=== PATIENT | female | born 1990 | race Caucasian/White ===

== ENCOUNTER 2017-09-18 15:59 | Emergency (ER) | END 2017-09-18 17:46 | disposition home or self-care (01) ==

== ENCOUNTER 2018-08-09 21:14 | Emergency (ER) | payer SELFPAY ==
[~2018-08-09] VITALS: Wt 83.9 kg
[~2018-08-09 21:14] MED LIST: AZIT250T PO; POLY10DR19 BOTH EYES
[2018-08-09] MEDS ORDERED: morphine 4 MG/ML VIAL IV STA (21:30)
[2018-08-09] MEDS ORDERED: SOD CHLORIDE 0.9% 1,000 ML IV STA (21:30)
[2018-08-09] MEDS ORDERED: ONDANSETRON 4 MG INJ IV STA (21:30)
--- NOTE | 2018-08-09 21:40 | ERD ---
ER Documentation Chief Complaint Chief Complaint VAGINAL BLEED, 6 WEEKS PG X'S 2 DAYS HPI 27-year female in her sixth week of presents with bleeding and lower abdominal pain for the past 3 days. She states that she has had a miscarriage before and that she is having another miscarriage. Describes her abdominal pain of 9 out of 10 in intensity. In addition she states that she is passing clots. Denies syncope, heart palpitations, fevers, shortness of breath, lightheadedness. Allergic to penicillin. History of . ROS All systems reviewed and are negative except as per history of present illness. Medications Home Meds Active Scripts Ibuprofen* (Motrin*) 600 Mg Tab, 600 MG PO Q6 for pain, #30 TAB Prov:SOTERO GANDHI 08/10/18 Azithromycin* (Zithromax*) 250 Mg Tablet, 250 MG PO .ZPACK DIRECTED, #6 TAB TAKE 500 MG (2 TABS) THE FIRST DAY THEN 250 MG (1 TAB) DAYS 2-5 Prov:SOTERO FRANKLIN PA-C 09/18/17 Polymyxin B Sulfate-TMP* (Polymyxin B-TMP Eye Drops*) 10 Ml Drops, 1 DROP BOTH EYES QID for 7 Days, #1 BOTTLE Prov:SOTERO FRANKLIN PA-C 09/18/17 Allergies Allergies: Coded Allergies: Penicillins (Verified Allergy, Mild, 09/18/17) PMhx/Soc Hx Alcohol Use: No Hx Substance Use: No Hx Tobacco Use: No Smoking Status: Never smoker FmHx Family History: No diabetes, No coronary disease, No other Physical Exam Vitals Vital Signs Date Temp Pulse Resp B/P (MAP) Pulse Ox O2 O2 Flow FiO2 Time Delivery Rate 08/10/18 97.4 87 18 106/54 99 Room Air 01:22 (71) 08/09/18 63 20 98/52 (67) 100 Nasal 2.0 22:11 Cannula 08/09/18 98.3 91 18 122/64 98 21:17 (83) Physical Exam Const: No acute distress Head: Atraumatic Eyes: Normal Conjunctiva ENT: Normal External Ears, Nose and Mouth. Neck: Full range of motion. No meningismus. Resp: Clear to auscultation bilaterally Cardio: Regular rate and rhythm, no murmurs Abd: Tenderness to palpation in the lower abdominal bilaterally. With no guarding. Normal bowel sounds Skin: No petechiae or rashes Back: No midline or flank tenderness Ext: No cyanosis, or edema Neur: Awake and alert Psych: Normal Mood and Affect Pelvic: Exam performed with medical record administrator present. clots seen and removed from the vaginal canal. . No products of conception seen.OS appeared closed with no lacerations or lesion noted in the vaginal canal or OS. Result Diagram: 08/09/181 Results 24 hrs Laboratory Tests Test 08/09/18 21:40 08/09/18 21:47 Urine Color RED Urine Clarity CLOUDY Urine pH 6.0 Urine Specific [place] 1.033 Urine Ketones TRACE mg/dL Urine Nitrite NEGATIVE mg/dL Urine Bilirubin NEGATIVE mg/dL Urine Urobilinogen NEGATIVE mg/dL Urine Leukocyte Esterase NEGATIVE Cee/ul Urine Microscopic RBC > 182 /HPF Urine Microscopic WBC 30 /HPF Urine Hemoglobin 3+ mg/dL Urine Glucose 1+ mg/dL Urine Total Protein 3+ mg/dl White Blood Count 12.2 10^3/ul Red Blood Count 4.03 10^6/ul Hemoglobin 11.5 g/dl Hematocrit 35.1 % Mean Corpuscular Volume 87.1 fl Mean Corpuscular Hemoglobin 28.5 pg Mean Corpuscular Hemoglobin Concent 32.8 g/dl Red Cell Distribution Width 13.9 % Platelet Count 260 10^3/UL Mean Platelet Volume 12.2 fl Immature Granulocytes % 0.300 % Neutrophils % 71.7 % Lymphocytes % 20.2 % Monocytes % 6.6 % Eosinophils % 0.8 % Basophils % 0.4 % Nucleated Red Blood Cells % 0.0 /100WBC Immature Granulocytes # 0.040 10^3/ul Neutrophils # 8.7 10^3/ul Lymphocytes # 2.5 10^3/ul Monocytes # 0.8 10^3/ul Eosinophils # 0.1 10^3/ul Basophils # 0.1 10^3/ul Nucleated Red Blood Cells # 0.0 10^3/ul Beta HCG, Quantitative 8540.7 mIU/ml Current Medications Medications Dose Sig/Elle Start Time Status Last (Trade) Ordered Route PRN Stop Time Admin Dose Reason Admin Sodium 1,000 ml @ Q1H STAT 08/09/18 DC 08/09/18 Chloride 1,000 mls/hr IV 21:30 08/09/18 21:49 22:29 Morphine 4 mg ONCE STAT 08/09/18 DC 08/09/18 Sulfate IV 21:30 08/09/18 21:49 (morphine) 21:34 Ondansetron 4 mg ONCE STAT 08/09/18 DC 08/09/18 HCl (Zofran IV 21:30 08/09/18 21:49 Inj) 21:34 Procedures/MDM DIAGNOSTIC IMAGING REPORT Patient: CARMITA BUSTAMANTE : 1990 Age: 27 Sex: F MR #: [id number] DOS: 08/09/18 0000 Ordering MD: SOTERO GANDHI Location: [facility] Room/Bed: PROCEDURE: US OB with transvaginal. CLINICAL INDICATION: Heavy vaginal bleeding with clots. Clinical estimated gestational age is 12 weeks 2 days with estimated date of delivery 02/19/2019 TECHNIQUE: Transabdominal and transvaginal views of the pelvis are available for review. COMPARISON: No prior studies are available for comparison. FINDINGS: No intrauterine is seen. The thickness of the endometrium equals 8 mm in the fundus. There is mixed echogenicity material suggestive of blood products in the endovaginal canal. Neither ovary seen. No adnexal mass or free intrapelvic fluid is seen IMPRESSION: No intrauterine seen. Mixed echogenicity material suggestive of blood products in the endovaginal canal. No ectopic seen. Differential diagnosis includes spontaneous , early intrauterine and ectopic . Correlation with serial quantitative beta HCGs and follow-up ultrasound is recommended. RPTAT: HJES .Chavez Mcmahon MD, MD Date Time Electronically viewed and signed by .Chavez Mcmahon MD, MD on 08/10/2018 00:26 .S/ CC: SOTERO GANDHI [phone] 27-year female in her sixth week of presents with bleeding and lower abdominal pain for the past 3 days. She states that she has had a miscarriage before and that she is having another miscarriage. Describes her abdominal pain of 9 out of 10 in intensity. In addition she states that she is passing clots. Denies syncope, heart palpitations, fevers, shortness of breath, lightheadedness. Allergic to penicillin. History of . Labs were performed and within normal limits. Patient given IV fluids and pain medication in the ER for what she described as 9 out of 10 cramping. Ultrasound was performed and showed no intrauterine however did show there were possible blood clots in the vaginal canal. Dr. Morin successfully remove the clots from the canal. Upon discharge patient's vaginal bleeding was under control and patient was fit to be discharged with ER precautions to return if any pain or heavy bleeding. Patient advised also to return in 2 days for follow -up beta quant as well as ultrasound. I have low suspicion for retained products of conception, uterine hemorrhage, symptomatic anemia, hypovolemic shock, or other emergent conditions. Patient discharged with strict ER precautions. Patient advised to follow up with PMD. All questions answered at d ischarge. Departure Diagnosis: Primary Impression: Vaginal bleeding in patient at less than 20 weeks gestation Condition: SOTERO Morillo Aug 09, 2018 21:40
[2018-08-10] MEDS ORDERED: IBUP-1542 PO (01:02)
[2018-08-10 01:22] VITALS: BP 106/54; PULSE 87; RESP 18
== END 2018-08-10 01:23 | disposition home or self-care (01) ==
LOC: FTE 21:14
DX: O20.9 Hemorrhage in early pregnancy, unspecified (principal); Z3A.12 12 weeks gestation of pregnancy
CPT/HCPCS: 36415; 76801; 76817; 81001; 84702; 85025; 86900; 86901; 96361; 96374; 96375; 99285; J2270; J2405; J7030

== ENCOUNTER 2018-08-13 11:04 | Emergency (ER) | payer SELFPAY ==
[~2018-08-13] VITALS: Ht 167.6 cm; Wt 84.5 kg
[~2018-08-13 11:04] MED LIST changes: +IBUP-1542 PO
[2018-08-13 11:11] VITALS: Ht 167.6 cm; Wt 84.5 kg
[2018-08-13] MEDS ORDERED: NAPR-985 PO (13:28)
[2018-08-13 13:41] VITALS: BP 122/65; PULSE 70; RESP 19
--- NOTE | 2018-08-14 08:38 | ERD ---
ER Documentation Chief Complaint Chief Complaint F/U from spontaneous HPI 27-year-old female presenting for a follow-up appointment with vaginal bleeding. She states she started bleeding a few days ago and was told she was likely experiencing miscarriage. LNMP May 15. A2. No OB care prior to ER visits. Denies any back pain. Has some mild to repeat cramping however no lateralized pain. Denies medical problems. Allergic to penicillin. Surgical history heart surgery. Social history denies ROS All systems reviewed and are negative except as per history of present illness. Medications Home Meds Active Scripts Naproxen* (Naprosyn*) 500 Mg Tablet, 500 MG PO BID PRN for PAIN AND/OR INFLAMMATION, #30 TAB Prov:ALFONSO ROBERTS PA-C 08/13/18 Ibuprofen* (Motrin*) 600 Mg Tab, 600 MG PO Q6 for pain, #30 TAB Prov:SOTERO GANDHI 08/10/18 Azithromycin* (Zithromax*) 250 Mg Tablet, 250 MG PO .ZPACK DIRECTED, #6 TAB TAKE 500 MG (2 TABS) THE FIRST DAY THEN 250 MG (1 TAB) DAYS 2-5 Prov:SOTERO FRANKLIN PA-C 09/18/17 Polymyxin B Sulfate-TMP* (Polymyxin B-TMP Eye Drops*) 10 Ml Drops, 1 DROP BOTH EYES QID for 7 Days, #1 BOTTLE Prov:SOTERO FRANKLIN PA-C 09/18/17 Allergies Allergies: Coded Allergies: Penicillins (Verified Allergy, Mild, 09/18/17) PMhx/Soc Hx Alcohol Use: No Hx Substance Use: No Hx Tobacco Use: No Smoking Status: Never smoker FmHx Family History: No diabetes, No coronary disease, No other Physical Exam Vitals Vital Signs Date Temp Pulse Resp B/P (MAP) Pulse Ox O2 O2 Flow FiO2 Time Delivery Rate 08/13/18 98.0 70 19 122/65 100 Room Air 13:41 (84) 08/13/18 98.2 72 18 125/71 3 11:11 (89) Physical Exam GENERAL: The patient is well-appearing, well-nourished, in no acute distress CHEST: Clear to auscultation bilaterally. There are no rales, wheezes or rhonchi. HEART: Regular rate and rhythm. No murmurs, clicks, rubs or gallops ABDOMEN:Soft, nontender and nondistended. Good bowel sounds. No rebound or guarding. No gross peritonitis. No gross organomegaly or masses. BACK: No midline or flank tenderness. Result Diagram: 08/13/18 1156 Results 24 hrs Laboratory Tests Test 08/13/18 11:56 White Blood Count 6.5 10^3/ul Red Blood Count 3.23 10^6/ul Hemoglobin 9.3 g/dl Hematocrit 28.6 % Mean Corpuscular Volume 88.5 fl Mean Corpuscular Hemoglobin 28.8 pg Mean Corpuscular Hemoglobin Concent 32.5 g/dl Red Cell Distribution Width 13.8 % Platelet Count 207 10^3/UL Mean Platelet Volume 11.8 fl Immature Granulocytes % 0.300 % Neutrophils % 67.0 % Lymphocytes % 25.1 % Monocytes % 6.0 % Eosinophils % 1.1 % Basophils % 0.5 % Nucleated Red Blood Cells % 0.0 /100WBC Immature Granulocytes # 0.020 10^3/ul Neutrophils # 4.3 10^3/ul Lymphocytes # 1.6 10^3/ul Monocytes # 0.4 10^3/ul Eosinophils # 0.1 10^3/ul Basophils # 0.0 10^3/ul Nucleated Red Blood Cells # 0.0 10^3/ul Urine Color YELLOW Urine Clarity SLIGHTLY CLOUDY Urine pH 5.0 Urine Specific [place] 1.029 Urine Ketones TRACE mg/dL Urine Nitrite NEGATIVE mg/dL Urine Bilirubin NEGATIVE mg/dL Urine Urobilinogen 2+ mg/dL Urine Leukocyte Esterase NEGATIVE Cee/ul Urine Microscopic RBC > 182 /HPF Urine Microscopic WBC 3 /HPF Urine Squamous Epithelial Cells FEW /HPF Urine Mucus MANY /HPF Urine Hemoglobin 3+ mg/dL Urine Glucose NEGATIVE mg/dL Urine Total Protein NEGATIVE mg/dl Beta HCG, Quantitative 700.2 mIU/ml Procedures/MDM DIAGNOSTIC IMAGING REPORT Patient: CARMITA BUSTAMANTE : 1990 Age: 27 Sex: F MR #: [id number] DOS: 08/13/18 1144 Ordering MD: LINDA ROBERTS PA-C Location: [facility] Room/Bed: PROCEDURE: US OB. CLINICAL INDICATION: Vaginal bleeding. TECHNIQUE: Transabdominal sonographic evaluation of the uterus was performed. COMPARISON: Obstetrical sonogram dated 08/09/2018. FINDINGS: Uterus is anteverted and measures 7.9 x 5.4 x 6.1 cm. No intrauterine gestational sac is seen. Endometrium measures 12 mm in thickness. Right ovary measures 2.3 x 1.2 x 1.6 cm. Left ovary measures 2.3 x 1.3 x 1.6 cm. Normal vascular waveforms were sampled from both ovaries. No suspicious adnexal masses are seen. There is no free pelvic fluid. IMPRESSION: 1. No visible intrauterine or ectopic . of unknown location. Recommend close follow-up with serial Beta HCG measurements and repeat pelvic sonogram in 7 days for reevaluation and exclude ectopic . MDM: 27-year-old female presenting with findings consistent with miscarriage. Patient's beta quant levels are dropping. Her hemoglobin is low however she denies any more bleeding and so I have low suspicion for hemodynamic instability. Patient is discharged with recommendations to follow up with primary care to ensure that her beta quant levels returned to 0. Patient is told symptoms change or worsen to return to the ER. I have considered ectopic however have low suspicion. All questions answered at discharge Departure Diagnosis: Primary Impression: Miscarriage Condition: Stable Patient Instructions: Miscarriage (Incomplete) Referrals: [facility] YOU HAVE RECEIVED A MEDICAL SCREENING EXAM AND THE RESULTS INDICATE THAT YOU DO NOT HAVE A CONDITION THAT REQUIRES URGENT TREATMENT IN THE EMERGENCY DEPARTMENT. FURTHER EVALUATION AND TREATMENT OF YOUR CONDITION CAN WAIT UNTIL YOU ARE SEEN IN YOUR DOCTORS OFFICE WITHIN THE NEXT 1-2 DAYS. IT IS YOUR RESPONSIBILITY TO MAKE AN APPOINTMENT FOR FOLOW-UP CARE. IF YOU HAVE A PRIMARY DOCTOR --you should call your primary doctor and schedule an appointment IF YOU DO NOT HAVE A PRIMARY DOCTOR YOU CAN CALL OUR PHYSICIAN REFERRAL HOTLINE AT IF YOU CAN NOT AFFORD TO SEE A PHYSICIAN YOU CAN CHOSE FROM THE FOLLOWING CO [facility] [address] [place] [facility] [address] [facility] [address] [facility] [address] [facility] [address] [facility]. [facility] [address] Additional Instructions: FOLLOW UP WITH YOUR PRIMARY CARE PHYSICIAN TOMORROW.Return to this facility if you are not improving as expected. ALFONSO ROBERTS PA-C Aug 14, 2018 08:38
== END 2018-08-13 13:43 | disposition home or self-care (01) ==
LOC: FTE 11:04
DX: O03.9 Complete or unspecified spontaneous abortion without complication (principal)
CPT/HCPCS: 36415; 76801; 81001; 84702; 85025